=== PATIENT | female | born 1970 | race Caucasian/White ===

== ENCOUNTER 2016-08-28 08:32 | Emergency (ER) | payer OTHER | END 2016-08-28 10:55 | disposition home or self-care (01) | LOC: ER 08:32 | DX: R06.02 Shortness of breath (principal); R07.89 Other chest pain; M54.9 Dorsalgia, unspecified; J44.9 Chronic obstructive pulmonary disease, unspecified; F17.210 Nicotine dependence, cigarettes, uncomplicated; Z98.51 Tubal ligation status | CPT/HCPCS: 36415; 87502; 96374; J1885; Q9967 ==

== ENCOUNTER 2016-09-25 10:53 | Emergency (ER) | payer OTHER | END 2016-09-25 12:46 | disposition home or self-care (01) | LOC: ER 10:53 | DX: J98.01 Acute bronchospasm (principal); M94.0 Chondrocostal junction syndrome [Tietze]; F17.210 Nicotine dependence, cigarettes, uncomplicated; Z98.51 Tubal ligation status | CPT/HCPCS: 36415; 96374 ==

== ENCOUNTER 2017-02-09 21:35 | Emergency (ER) | payer OTHER | END 2017-02-09 22:19 | disposition home or self-care (01) | LOC: ER 21:35 | DX: S83.92XA Sprain of unspecified site of left knee, initial encounter (principal); M25.462 Effusion, left knee; F17.210 Nicotine dependence, cigarettes, uncomplicated; Z98.51 Tubal ligation status; X50.1XXA Overexertion from prolonged static or awkward postures, initial encounter; Y92.009 Unspecified place in unspecified non-institutional (private) residence as the place of occurrence of the external cause ==